=== PATIENT | female | born 1965 | race Caucasian/White ===

== ENCOUNTER → 2021-01-17 | Outpatient (CLI) | payer OTHER, MEDICARE ==
[~2021-01-17] MED LIST: ALEVE220 MG PO; PERCOCET 5-3251 EACH PO
== END ==
LOC: M.MRI
PROVIDERS: ATTEND Orthopaedic Surgery
DX: S83.241A Other tear of medial meniscus, current injury, right knee, initial encounter (principal); M23.91 Unspecified internal derangement of right knee; M23.303 Other meniscus derangements, unspecified medial meniscus, right knee; M23.300 Other meniscus derangements, unspecified lateral meniscus, right knee; M25.461 Effusion, right knee; M25.861 Other specified joint disorders, right knee; X58.XXXA Exposure to other specified factors, initial encounter; Y93.89 Activity, other specified; Y92.89 Other specified places as the place of occurrence of the external cause; Y99.8 Other external cause status